=== PATIENT | male | born 1975 | race Caucasian/White ===

== ENCOUNTER 2019-07-09 08:42 | Outpatient (REF) | payer BC, SELFPAY ==
[2019-07-09 11:32] LABS: ALT 34 U/L (16-63); AST 20 U/L (15-37); Alkaline Phosphatase 76 U/L (46-116); Anion Gap 7.1 mmol/L (3-11); BUN 16 mg/dL (7-18); Bilirubin, Total 0.5 mg/dL (0.2-1.0); CO2 30.9 mmol/L (21.0-32.0); Calcium 9.2 mg/dL (8.5-10.1); Calculated LDL 115 mg/dL; Chloride 104 mmol/L (98-107); Cholesterol 182 mg/dL (50-200); Glucose 97 mg/dL (70-100); HDL Cholesterol 45 mg/dL (40-60); Potassium 4.9 mmol/L (3.5-5.1); Sodium 142 mmol/L (136-145); Total Protein 7.2 g/dL (6.4-8.2); Triglyceride 113 mg/dL (30-150)
[2019-07-10 08:53] LABS: PSA, Screening 0.8 ng/ml (0-2.5)
== END 2019-07-09 09:02 ==
LOC: NCHCO 08:42
PROVIDERS: PCP Specialist/Technologist Athletic Trainer; Visit Provider Specialist/Technologist Athletic Trainer
DX: Z00.00 Encounter for general adult medical examination without abnormal findings (principal); I47.1 Supraventricular tachycardia; E78.1 Pure hyperglyceridemia
CPT/HCPCS: 80053; 80061; 84153

== ENCOUNTER 2020-05-17 08:14 | Outpatient (CLI) | payer BC, SELFPAY ==
[2020-05-19 05:06] LABS: SARS-CoV-2 RNA Undetected (Undetected); SARS-CoV-2 Specimen Source Nasopharynx
== END 2020-05-17 08:34 ==
PROVIDERS: PCP Specialist/Technologist Athletic Trainer; Visit Provider Family Medicine
DX: Z11.59 Encounter for screening for other viral diseases (principal)
CPT/HCPCS: U0003

== ENCOUNTER 2020-12-05 11:31 | Outpatient (REF) | payer BC, SELFPAY ==
[2020-12-06 15:01] LABS: COVID-19 RT-PCR UVMMC Result Negative (Negative)
== END 2020-12-05 11:32 | disposition home or self-care (01) ==
LOC: NCHCN 11:31
PROVIDERS: PCP Specialist/Technologist Athletic Trainer; Visit Provider Nurse Practitioner Family
DX: Z20.822 Contact with and (suspected) exposure to COVID-19 (principal)
CPT/HCPCS: U0003

== ENCOUNTER 2021-03-09 17:04 | Outpatient (REF) | payer BC, SELFPAY ==
[2021-03-11 14:24] LABS: COVID-19 RT-PCR UVMMC Result Negative (Negative)
== END 2021-03-09 17:05 | disposition home or self-care (01) ==
LOC: NCHCN 17:04
PROVIDERS: PCP Specialist/Technologist Athletic Trainer; Visit Provider Nurse Practitioner Family
DX: Z20.822 Contact with and (suspected) exposure to COVID-19 (principal)
CPT/HCPCS: U0003

== ENCOUNTER 2021-09-26 18:31 | Emergency (ER) | payer OTHER, BC, SELFPAY ==
--- NOTE | 2021-09-26 18:30 | DI.RAD_ITS ---
Exam(s) XR THUMB LT EXAM: XR THUMB LT EXAM DATE/TIME: CLINICAL HISTORY: pain s/p crush injury. TECHNIQUE: 2D digital imaging was performed of the left finger. Three views were obtained. PA/AP, oblique, and lateral views were obtained. COMPARISON: None. FINDINGS: BONES: There is an acute comminuted nondisplaced fracture of the distal phalanx of the thumb. The fr acture does not involve the articular surface. No bony destructive lesion is seen. JOINTS: No dislocation is present. SOFT TISSUE: Soft tissue swelling of the thumb. IMPRESSION: Comminuted fracture of the distal phalanx of the thumb. DATA REPOSITORY: RADIATION DOSE DELIVERED:
[2021-09-26 18:35] VITALS: BP 145/109; PULSE 96; RESP 18; TEMP 36.8; O2SAT 96
--- NOTE | 2021-09-26 18:42 | ED.GENADUL_ITS ---
Discharge Plan Disposition Patient Disposition: HOME Condition: Stable Discharge Details Clinical Impression: Fracture of thumb Primary Care Provider: Norberto Larkin ED Provider: Niels Gabriel Home Meds and New Rx's Prescriptions: New cephalexin 500 mg tablet 500 mg PO QID Qty: 12 RF: 0 No Action No Known Home Meds RF: 0 Discharge Instructions Additional Instructions: your xray showed a fracture of the distal thumb bone follow up with orthopedics, call their office tomorrow you can take 1000mg tylenol and 600mg ibuprofen every 6 hours for pain as needed Referrals: Hi Saab MD [ [facility] STAFF PHYSICIAN] - Medical Decision Making 45 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 Denies falls or other injurires. He has pain of the distal left thumb, normal sensation and cap refill, has a very small proximal subungal hematoma of the nail about 2mm in length and not big enough to drain, full range of motion of the thumb. No pain in the wrist or other fingers. Will obtain xray to evaluate for fracture fracture on my read on xray, placed in splint and will have him f/u with ortho Differential Diagnosis Differential Diagnosis: contusion, fracture Imaging Data Radiologic Study: Attestation: I personally reviewed and interpreted this imaging study as follows: Imaging: X-Ray My impression: fracture HPI General Mode of arrival: ambulatory . Date/Time Provider Initiated Documentation: 09/26/21 18:38 . Limitations to Documentation: no limitations . Information obtained by: patient . History of Present Illness 45 year old M presents to the emergency department with the chief complaint of left thumb injury, described as moderate, Quality is described as aching, and is localized to the left and upper extremity. Patient reports no radiation. Patient started experiencing this hour(s) (1) and it has been constant. No relieving factors improve symptom(s), No exacerbating factors reported . Patient notes no other symptoms.. Patient did receive the following treatments prior to arrival, none Related Data Home Medications Medication Instructions Recorded Confirmed Unknown [No Known Home Meds] 09/26/21 09/26/21 cephalexin 500 mg PO QID #12 tab 09/26/21 Previous Rx's Medication Instructions Recorded cephalexin 500 mg PO QID #12 tab 09/26/21 Allergies Allergy/AdvReac Type Severity Reaction Status Date / Time No Known Allergies Allergy Unverified 09/26/21 18:38 General Stated Complaint: Orthopedic LITO: 3 Review of Systems All systems reviewed & are unremarkable except as noted in HPI and below Constitutional Constitutional: Denies chills, Denies fever(s) and Denies weakness Cardiovascular Cardiovascular: Denies chest pain and Denies dyspnea Respiratory Respiratory: Denies cough and Denies dyspnea Gastrointestinal Gastrointestinal: Denies abdominal pain, Denies nausea and Denies vomiting Musculoskeletal Musculoskeletal: Denies joint swelling Neurologic Neurologic: Denies weakness PFSH All Active Problems (Updated 09/26/21 @ 19:19 by Niels Gabriel MD) Fracture of thumb (Acute) Social History Smoking/Tobacco Use Status: Never Smoking risk assessment performed?: Yes Alcohol Intake: never Substance use type: does not use Do you feel safe at home: Yes Do you feel safe in your relationship?: Yes Exam Const General: no acute distress Orientation: alert HENMT Head: normal to inspection Ears: external ears normal General nose exam: external nose normal Mouth: moist mucous membranes Eyes General: appearance normal, both eyes and all related structures Neck Neck: normal visual inspection Resp Effort & Inspection: normal respiratory effort and able to speak in complete sentences Cardio Rate: regular rate Skin General skin exam: no rashes or lesions noted Neuro General: patient alert and patient oriented x3 Extrem General: full ROM and capillary refill normal Psych Mental Status: mental status grossly normal Course Vital Signs Vital signs: Vital Signs Temperature 36.8 C 09/26/21 18:35 Pulse 96 H 09/26/21 18:35 Respiratory Rate 18 09/26/21 18:35 Blood Pressure 145/109 H 09/26/21 18:35 Pulse Oximetry 96 09/26/21 18:35 Temperature 36.8 C 09/26/21 18:35 Pulse 96 H 09/26/21 18:35 Respiratory Rate 18 09/26/21 18:35 Respiratory Effort Non-Labored 09/26/21 18:39 Blood Pressure 145/109 H 09/26/21 18:35 Pulse Oximetry 96 09/26/21 18:35 Oxygen Delivery Method Room Air 09/26/21 18:35 Oxygen Flow Rate 0 09/26/21 18:35 Pain Level 4 09/26/21 18:39
[2021-09-26] MEDS: Acetaminophen 500 MG TAB 1000 MG PO (18:48)
[2021-09-26] MEDS: Ibuprofen 600 MG TAB PO (18:49)
[2021-09-26] MEDS: Cephalexin 500 MG CAP PO (19:41)
[2021-09-26 19:42] VITALS: BP 145/109; PULSE 96; RESP 18; TEMP 36.8; O2SAT 96
--- NOTE | 2021-09-26 19:59 | DI.VRAD_ITS ---
PROCEDURE INFORMATION: Exam: XR Left Finger(s) Exam date and time: 09/26/2021 6:42 PM Age: 45 years old Clinical indication: Injury or trauma; Other: Crush injury; Work related; Crushing; Finger; Left; Thumb; Injury date: 09/26/21; Injury details: Crushed [id number] security door TECHNIQUE: Imaging protocol: XR Left fingers. Views: Minimum 2 views. COMPARISON: No relevant prior studies available. FINDINGS: Bones/joints: A comminuted fracture is present in the left 1st distal phalanx. Longitudinal and transverse fracture lines are present. The fracture fragments are not significantly displaced. The articular surface at the interphalangeal joint appears intact. The 1st proximal phalanx and 1st metacarpal are intact. Soft tissues: Soft tissue swelling is noted in the thumb. There is no soft tissue air observed. There are no radiopaque foreign bodies. IMPRESSION: Comminuted fracture, 1st distal phalanx. Dictated and Authenticated by: Niels Allison MD. Ordering:JULIO Bowser MD
== END 2021-09-26 19:42 | disposition home or self-care (01) ==
PROVIDERS: Emergency Provider Emergency Medicine; PCP Specialist/Technologist Athletic Trainer
DX: S62.522A Displaced fracture of distal phalanx of left thumb, initial encounter for closed fracture (principal); W23.0XXA Caught, crushed, jammed, or pinched between moving objects, initial encounter; Y99.0 Civilian activity done for income or pay
CPT/HCPCS: 11740; 29130; 99283; 73140

== ENCOUNTER 2021-10-04 10:07 | Outpatient (CLI) | payer OTHER, BC, SELFPAY ==
--- NOTE | 2021-10-04 09:45 | DI.RAD_ITS ---
Exam(s) XR THUMB LT EXAM: XR THUMB LT CLINICAL HISTORY: LEFT thumb FX. TECHNIQUE: 2D digital imaging was performed. COMPARISON: CR,XR XR THUMB LT from 09/26/2021 FINDINGS: Again noted is the comminuted fracture of the distal phalanx of the thumb. Fracture lines are still evident. No further displacement evident. No radiopaque foreign body. No osseous lesions. IMPRESSION: DATA REPOSITORY: RADIATION DOSE DELIVERED:
== END 2021-10-04 10:08 | disposition home or self-care (01) ==
LOC: DIORS 10:07
PROVIDERS: PCP Specialist/Technologist Athletic Trainer; Referring Provider Specialist/Technologist Athletic Trainer; Visit Provider Physician Assistant
DX: S62.522D Displaced fracture of distal phalanx of left thumb, subsequent encounter for fracture with routine healing (principal); W23.0XXD Caught, crushed, jammed, or pinched between moving objects, subsequent encounter
CPT/HCPCS: 73140

== ENCOUNTER 2021-10-25 11:21 | Outpatient (CLI) | payer OTHER, BC, SELFPAY ==
--- NOTE | 2021-10-25 10:45 | DI.RAD_ITS ---
Exam(s) XR THUMB LT EXAM: XR THUMB LT CLINICAL HISTORY: thumb fx f/u TECHNIQUE: COMPARISON: CR,XR XR THUMB LT from 09/26/2021 FINDINGS: Three views were obtained and show previously described comminuted fracture of the distal phalanx of the thumb. There is been no gross interval change in alignment of fracture fragments comparison with examination of September 26 IMPRESSION: RADIATION DOSE DELIVERED: Total DLP
== END 2021-10-25 11:22 | disposition home or self-care (01) ==
LOC: DIORS 11:21
PROVIDERS: PCP Specialist/Technologist Athletic Trainer; Referring Provider Specialist/Technologist Athletic Trainer; Visit Provider Student in an Organized Health Care Education/Training Program
DX: S62.522D Displaced fracture of distal phalanx of left thumb, subsequent encounter for fracture with routine healing (principal)
CPT/HCPCS: 73140

== ENCOUNTER 2021-11-29 10:59 | Outpatient (CLI) | payer OTHER, SELFPAY ==
--- NOTE | 2021-11-29 10:45 | DI.RAD_ITS ---
Exam(s) XR THUMB LT EXAM: XR THUMB LT INDICATION: crush injury L thumb. COMPARISON: CR XR THUMB LT from 10/25/2021 25 October 2021 TECHNIQUE: 2D digital imaging was performed. FINDINGS: There has been no change distal phalangeal fracture. No new abnormalities. DATA REPOSITORY: RADIATION DOSE DELIVERED:
== END 2021-11-29 11:00 | disposition home or self-care (01) ==
LOC: DIORS 10:59
PROVIDERS: PCP Specialist/Technologist Athletic Trainer; Referring Provider Specialist/Technologist Athletic Trainer; Visit Provider Student in an Organized Health Care Education/Training Program
DX: S62.522D Displaced fracture of distal phalanx of left thumb, subsequent encounter for fracture with routine healing (principal); S67.02XD Crushing injury of left thumb, subsequent encounter; W23.0XXD Caught, crushed, jammed, or pinched between moving objects, subsequent encounter
CPT/HCPCS: 73140

== ENCOUNTER 2021-12-20 16:37 | Outpatient (REF) | payer BC, SELFPAY ==
[2021-12-20 15:18] LABS: ALT 48 U/L (16-63); AST 22 U/L (15-37); Alkaline Phosphatase 55 U/L (46-116); Anion Gap 11.7 mmol/L (3-11); BUN 12 mg/dL (7-18); Bilirubin, Total 0.4 mg/dL (0.2-1.0); CO2 24.3 mmol/L (21.0-32.0); CREATININE 0.9 mg/dL (0.70-1.30); Calcium 8.9 mg/dL (8.5-10.1); Calculated LDL 128 mg/dL (<100); Chloride 104 mmol/L (98-107); Cholesterol 196 mg/dL (<200); Glucose 115 mg/dL (74-106); HDL Cholesterol 43 mg/dL (40-60); Potassium 4.4 mmol/L (3.5-5.1); Sodium 140 mmol/L (136-145); Total Protein 6.8 g/dL (6.4-8.2); Triglyceride 129 mg/dL (<150)
[2021-12-20 23:27] LABS: PSA, Screening 0.6 ng/mL (0.0-2.5)
[2022-01-02 11:26] LABS: Testosterone, Free 11.9 ng/dL (4.26-16.4); Testosterone, Total 496 ng/dL (240-950)
== END 2021-12-20 16:38 | disposition home or self-care (01) ==
LOC: NCHCN 16:37
PROVIDERS: PCP Specialist/Technologist Athletic Trainer; Visit Provider Family Medicine
DX: E78.1 Pure hyperglyceridemia (principal); R51.9 Headache, unspecified; N52.9 Male erectile dysfunction, unspecified; Z00.00 Encounter for general adult medical examination without abnormal findings; Z12.5 Encounter for screening for malignant neoplasm of prostate
CPT/HCPCS: 80053; 80061; 84153; 84402; 84403